=== PATIENT | male | born 2000 | race Caucasian/White ===

== ENCOUNTER 2025-01-05 10:02 | Emergency (ER) | payer BC, SELFPAY ==
--- NOTE | 2025-01-05 10:21 | ED.GENMED ---
History of Present Illness
General
Chief Complaint: Urinary Symptoms
Source: patient
Exam Limitations: none
Time Seen by Provider: 01/05/25 10:06
History of Present Illness
History of Present Illness:
24-year-old male presents via EMS from home with complaints of urinary retention. Last he was able to urinate was last evening. He states since then he has felt a full bladder and notes that he only gets drops out when he tries to void. He notes
that he started Effexor 1 week ago. He is on Wellbutrin as well but this is not new. No other complaints at this time.
Phy Exam
Physical Exam
Physical Exam:
General: Well-appearing male no acute respiratory distress
HEENT normal cephalic atraumatic
Heart: Regular rate and rhythm
Lungs: Clear no wheeze
Abdomen soft mild suprapubic pressure no guarding or rebound nontender
Course
Orders/Labs/Results
Orders:
Orders
01/05/25 11:09
Straight cath- Treatment ONCE
01/05/25 11:12
Lidocaine 2% [Lidocaine Uro-Jet 2%] 1 syringe TOPICAL NOW STA
01/05/25 12:19
HYDROmorphone [Dilaudid] 0.5 mg IV NOW STA
01/05/25 12:40
Oxycodone/Acetaminophen [Percocet 5/325] 1 tablet .ROUTE .STK-MED ONE
01/05/25 12:42
Oxycodone/Acetaminophen [Percocet 5/325] 1 tablet PO NOW STA
01/05/25 12:48
Urinalysis Reflex To Culture Urgent
Date Specimen was Collected: 01/05/25
Time Specimen was Collected: 12:47
Urine Microscopic Reflex Cult Urgent
Urine Culture Urgent
EVELYN Source: U
Specimen Description:
Date Specimen was Collected: 01/05/25
Time Specimen was Collected: 12:47
Abnormal Lab Results
01/05/25
12:48
Urine Ketones 1+ A
(Negative)
Ur Occult Blood Reflex 1+ A
(Negative)
Leukocyte Esterase Rfl 2+ A
(Negative)
Urine WBC (Reflex) 16-20 A /HPF
(0-5)
Urine Bacteria (Reflex) Few A
(Negative)
Urine Albumin (Reflex) 1+ A
(Neg - Trace)
MDM/Problems Addressed
Differential Diagnosis Includes:
Patient's acute complaint is urinary retention question etiology but could potentially be related to initiation of Effexor recently. Bedside bladder scan shows almost 500 mL in the bladder.
*Pulse Oximetry
Patient hypoxic: no
*Critical Care Note
Total Time (30-74mins, 75-104mins- exclusive of procedures): Not Applicable
Update Note
Update Note:
I spoke with urology who recommended straight cathing patient. Nurse and I both were unable to place catheter. It appears as though on exam that he has a stricture at the tip of his urethra. A small pediatric catheter was attempted the past which
was unsuccessful. Called urology again and asked them to see the patient
Repeat bladder scan now over 613 mLs.
Urology evaluated the patient was able to pass catheter.
Patient now feeling improved after bladder was evacuated. Per urology patient stable for discharge with a Victor catheter. His presenting issue is likely due to urethral stricture.
ED Attending Note
-
Portions of this chart may have been created with voice recognition software.� Occasional wrong word or��sound alike� substitutions may have occurred due to the inherent limitations of voice recognition software.
Discharge Plan
Departure
Patient Disposition: Home (Routine Discharge)
Date of Disposition: 01/05/25
Time of Disposition: 13:37
Patient with high blood pressure during this ER visit?: No
Discharge Problem:
Acute urinary retention
Instructions: How to Care for Your Victor Catheter, Male
Referrals:
Micheal Palomo PA-C [Family Provider, Family Practice]
Shama Yin MD [Active, Urology]
Activity Restrictions/Additional Instructions:
Please follow-up with urology for next available appointment. Empty your catheter as needed. Return if worse otherwise
Interventions
Interventions:
*Risk Screen - Suicide Last Done: 01/05/25 10:04
*General Assessment Last Done: 01/05/25 10:04
*Neglect/Abuse Screening Last Done: 01/05/25 10:04
*ED- Fall Risk Assessment Last Done: 01/05/25 10:04
*ED COVID-19 Vaccine History Last Done: 01/05/25 10:04
*ED Influenza Vaccine History Last Done: 01/05/25 10:04
ED-Male Genitourinary Assessment Last Done: 01/05/25 10:07
Discharge Date and Time
Print Language: GEORGIAN
[2025-01-05] MEDS: PERCOCET 5/325 1 TABLET PO (12:42)
[2025-01-05 13:04] LABS: Urine Character Clear (Clear)
[2025-01-05 13:14] LABS: Urine Squamous Cell 16-20 /LPF (Few)
[2025-01-05 13:15] LABS: Urine Red Blood Cell 0-2 /HPF (0-2)
[2025-01-05 13:16] LABS: Urine White Cell 16-20 /HPF (0-5)
--- NOTE | 2025-01-05 13:53 | CONS.URO ---
Consultation
-
Date/Time Consultation Performed: 01/05/25, 12:10PM
Performing Provider: Humphrey
Reason for Consultation: urinary retention
Medical History
History of Present Illness
24M with hx hypospadias and repair as a kid, who presents with acute urinary retention
Last void was yesterday evening around 9:30PM, has been unable to urinate since
Denies having these sx before, stream has been fine previously
Denies UTI, hematuria, dysuria
Endorses suprapubic pain
ER attempted to place catheter without success. Nursing tried 9F puente which reportedly passed into the bladder however without urine return thus catheter removed
Allergies/Home Medications
Allergies
Allergy/AdvReac Type Severity Reaction Status Date / Time
peanuts Allergy Unknown Uncoded 01/09/17 12:39
tree nuts Allergy Unknown Uncoded 01/09/17 12:39
Physical Exam
Physical Exam
General: Well Developed and Well Nourished
Respiratory: Clear
GI: Soft and Non Tender
Genito-urinary: Other (Suprapubic distension; small meatus)
Neuro: Awake, Alert and Oriented
Psych: Calm
Assessment / Plan
-
24M with hx hypospadias s/p prior repair as child, presenting with urinary retention
Placement of 14 [place] puente catheter with resistance in the distal penile urethra/fossa navicularis region, > 600cc yellow urine drained. 10 mL in puente balloon
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
He is unsure where he had his repair done - we will try to obtain these records OP
Plan:
- Continue puente
- Follow up 1-2 weeks for void trial in office > at that time will discuss urethral rest and RUG/cysto in 5-6 weeks time after puente removed, or conservative management
== END 2025-01-05 14:14 | disposition home or self-care (01) ==
LOC: EMR 10:02
PROVIDERS: Physician Assistant; EMERGENCY PHYSICIAN Emergency Medicine; FAMILY PHYSICIAN Physician Assistant Medical
DX: R33.9 Retention of urine, unspecified (principal)
CPT/HCPCS: 99284; 96374; 51702; 81003; 81015; 87086